=== PATIENT | female | born 1990 | race Caucasian/White ===

== ENCOUNTER 2023-03-30 17:00 | Emergency (ER) | payer OTHER, SELFPAY ==
[2023-03-30 17:16] VITALS: BP 116/69; PULSE 98; RESP 16; TEMP 36.5; O2SAT 100
--- NOTE | 2023-03-30 17:35 | ED.URI ---
HPI - URI/Sore Throat General Chief Complaint: Upper Respiratory Infection Stated Complaint: Body Ache/Cough History of Present Illness HPI Narrative: 32-year-old female presented for complaint of fatigue and body aches. Onset yesterday. denies any associated symptoms. No other complaints. Related Data Home Medications Medication Instructions Recorded Confirmed metformin 500 mg tablet,extended mg PO 03/30/23 release 24 hr sertraline 100 mg tablet mg 03/30/23 Allergies Allergy/AdvReac Type Severity Reaction Status Date / Time cefaclor [From [facility]] Allergy Unknown Verified 03/30/23 17:16 Review of Systems Review of Systems: CONSTITUTIONAL: Reports body aches, denies fever, chills, or sweats. EYES: Denies visual changes, redness, or discharge. ENT: Denies rhinorrhea, congestion, or otalgia. CARDIOVASCULAR: Denies chest pain, palpitations, or edema. RESPIRATORY: Denies dyspnea. GASTROINTESTINAL: Denies abdominal pain, nausea, vomiting, or diarrhea. SKIN: Denies rash, itching, or wounds. MUSCULOSKELETAL: Denies back pain, joint pain, or myalgia. NEUROLOGIC: Denies headache Exam Narrative: GENERAL: well-appearing, no acute distress. EYES: conjunctivae clear ENT: Mucous membranes moist. TMs pearly pickett with normal light reflex bilaterally; no tragal tenderness. Oropharynx normal without lesions. Tonsils enlarged 1+ and without exudate. No drooling, no hoarseness, no trismus, uvula midline. No tripod positioning, hot potato voice, or soft palate swelling. NECK: Supple. No lymphadenopathy CHEST: Clear to auscultation, breath sounds equal. No respiratory distress, speaks in full sentences. HEART: Regular rate and rhythm. No murmur heard. SKIN: Warm, dry, no rash. NEURO: Alert and oriented x3. Course Course Emergency Course: Patient is aware of diagnosis, understands and agrees to treatment plan. Anticipatory guidance given. Patient agrees to follow-up as directed and is aware of reasons to seek care at the emergency department. Portions of this record may have been created with voice recognition software Level of Care: Express Care Visit Vital Signs Vital signs: Vital Signs Temperature 97.7 F 03/30/23 17:16 Pulse Rate 98 03/30/23 17:16 Respiratory Rate 16 03/30/23 17:16 Blood Pressure 116/69 03/30/23 17:16 Pulse Oximetry 100 03/30/23 17:16 Oxygen Delivery Room Air 03/30/23 17:16 Temperature 97.7 F 03/30/23 17:16 Pulse Rate 98 03/30/23 17:16 Respiratory Rate 16 03/30/23 17:16 Blood Pressure 116/69 03/30/23 17:16 Pulse Oximetry 100 03/30/23 17:16 Oxygen Delivery Room Air 03/30/23 17:16 MDM - URI/Sore Throat MDM Narrative Medical decision making narrative: negative flu and COVID result reviewed with pt. Advise supportive treatments. Patient is appropriate for outpatient treatment and follow-up. Differential Diagnosis Differential diagnosis: Likely upper respiratory infection, viral infection and pharyngitis Lab Data Labs: Influenza A Screen Negative Reference Range: Negative Influenza B Screen Negative Reference Range: Negative Discharge Plan Discharge Clinical Impression: Viral infection Patient Disposition: Home, Self-Care Condition: Stable Instructions: Antibiotic Form, Upper Respiratory Infection (ED) Additional Instructions: Influenza negative. Neck Your rapid covid test was negative today. It may be too early to detect the virus, therefore we recommend retesting at home in 1-2 days Continue to follow general precautions: frequent handwashing, wear a mask, isolate/social distance, and avoid crowds if you have a fever. You must be fever free for 24 hours without the use of fever reducing medication (Tylenol/ibuprofen) before returning to work/school/crowds. Recommen
== END 2023-03-30 17:47 | disposition home or self-care (01) ==
PROVIDERS: Emergency Provider Nurse Practitioner Family
DX: B34.9 Viral infection, unspecified (principal); Z20.822 Contact with and (suspected) exposure to COVID-19
CPT/HCPCS: 87426; 87804; 99213; G0463

== ENCOUNTER 2023-11-16 12:43 | Emergency (ER) | payer OTHER, SELFPAY ==
--- NOTE | ~2023-11-16 | XR_ITS ---
EXAMINATION: XR foot RT min 3V DATE: 11/16/2023 13:29 INDICATION: Right foot pain. TECHNIQUE: 4 views of right foot were obtained. COMPARISON: None. FINDINGS: There is mild hallux valgus. No fracture. Joint spaces are normal. There are enthesophytes at the posterior and plantar aspects of calcaneal tuberosity. IMPRESSION: 1. Mild hallux valgus. Reviewed, dictated and finalized at location A. IMPRESSION: 1. Mild hallux valgus.
--- NOTE | 2023-11-16 12:48 | ED.LOWEXIN ---
HPI - Extremity Injury (Lower) General Chief Complaint: Extremity Injury, Lower Stated Complaint: Right Foot Pain Time Seen by Provider: 11/16/23 12:48 Source: patient Mode of arrival: ambulatory Limitations: no limitations History of Present Illness HPI Narrative: 33-year-old female presents with complaint of pain to top of right foot for 3-4 days. Denies injury. Patient arrived wearing flip-flops. has taken Tylenol to treat pain. Pain worse when weight-bearing. All systems reviewed and negative except as noted above. Related Data Home Medications Medication Instructions Recorded Confirmed metformin 500 mg tablet,extended 500 mg PO DAILY 03/30/23 11/16/23 release 24 hr sertraline 100 mg tablet 100 mg PO DAILY 03/30/23 11/16/23 Allergies Allergy/AdvReac Type Severity Reaction Status Date / Time cefaclor [From [facility]] Allergy Unknown Verified 11/16/23 12:58 Review of Systems Review of Systems: CONSTITUTIONAL: Denies fever, chills, or sweats. EYES: Denies visual changes, redness, or discharge. ENT: Denies rhinorrhea, congestion, sore throat, or otalgia. CARDIOVASCULAR: Denies chest pain, palpitations, or edema. RESPIRATORY: Denies cough or dyspnea. GASTROINTESTINAL: Denies abdominal pain, nausea, vomiting, or diarrhea. GENITOURINARY: Denies dysuria or hematuria. SKIN: Denies rash or itching. MUSCULOSKELETAL: Denies back pain, joint pain, or myalgia. Reports pain to top of right foot. NEUROLOGIC: Denies headache, numbness, or weakness. PSYCHIATRIC: Denies anxiety or depression. All other systems reviewed are negative, except as documented in HPI. PMFSH Comments At time of signature, agree with nursing past medical, surgical, social and family history. There is no relevant family history pertinent to the presenting complaint. Exam Narrative: GENERAL: This is a well-nourished, well-developed patient, in no apparent distress. HEAD: normocephalic, atraumatic. EYES: PERRL. Sclera clear/white. Vision is grossly intact. EARS: External ears normal NOSE: External nose normal NECK: Neck supple, non-tender without lymphadenopathy, masses or thyromegaly. CARDIOVASCULAR: Regular rate and rhythm without murmurs, gallops, or rubs. RESPIRATORY: Clear to auscultation. Breath sounds equal bilaterally. No wheezes, rales, or rhonchi. SKIN: warm, Dry, intact with no suspicious lesions or rash, good texture and turgor. NEURO: awake, alert, and oriented to person, place and time. There were no obvious focal neurologic abnormalities. EXTREMITIES: Generalized tenderness to dorsal aspect right foot with mild swelling. No bruising or deformity noted. Normal range of motion. Distal neurovascularly intact. Course Course Level of Care: Express Care Visit Vital Signs Vital signs: Reviewed MDM - Extremity Injury (Lower) MDM Narrative Medical decision making narrative: discussed x-ray results with patient. There are no findings to cause her pain. Recommend follow-up with primary care physician if pain not improving with RICE Patient is aware of diagnosis, understands and agrees to treatment plan. Anticipatory guidance given. Patient agrees to follow-up as directed and is aware of reasons to seek care at the emergency department. Portions of this record may have been created with voice recognition software Imaging Data My impression: agree with radiologist Radiologist's impression: EXAMINATION: XR foot RT min 3V DATE: 11/16/2023 13:29 INDICATION: Right foot pain. TECHNIQUE: 4 views of right foot were obtained. COMPARISON: None. FINDINGS: There is mild hallux valgus. No fracture. Joint spaces are normal. There are enthesophytes at the posterior and plantar aspects of calcaneal tuberosity. IMPRESSION: 1. Mild hallux valgus. Discharge Plan Discharge Clinical Impression: Acute pain of right foot Patient Disposition: Home, Self-Care Condition: Stable Instructions: Gener
[2023-11-16 12:50] VITALS: BP 137/79; PULSE 80; RESP 16; TEMP 36.6; O2SAT 100
== END 2023-11-16 13:56 | disposition home or self-care (01) ==
PROVIDERS: Emergency Provider Nurse Practitioner Family
DX: M79.671 Pain in right foot (principal); E28.2 Polycystic ovarian syndrome; F41.9 Anxiety disorder, unspecified
CPT/HCPCS: 73630; 99213; G0463

== ENCOUNTER 2023-12-03 16:56 | Emergency (ER) | payer OTHER, SELFPAY ==
[2023-12-03 17:27] VITALS: BP 141/70; PULSE 102; RESP 20; TEMP 36.6; O2SAT 100
[2023-12-03 17:35] LABS: EDUAAPPEAR Clear; EDUABILI Negative (Negative); EDUABLOOD Trace (Negative); EDUACOLOR1 Amber; EDUAGLUCOSE Negative (Negative); EDUAKETONE Negative (Negative); EDUALEUKO 1+ (Negative); EDUANITRATE Negative (Negative); EDUAPROTEIN Negative (Negative); EDUAUROBILI 0.2
--- NOTE | 2023-12-03 20:12 | ED_ITS ---
HPI - General Adult General Chief complaint: Urogenital-Female Stated complaint: poss UtI Time Seen by Provider: 12/03/23 17:32 Source: patient, RN notes reviewed and old records reviewed Mode of arrival: ambulatory Limitations: no limitations History of Present Illness HPI narrative: 33-year-old female to Express Care with complaint urinary urgency, frequency and lower abdominal pressure since this morning. Patient denies flank pain, abdominal pain, nausea, fever, hematuria. Patient hypertensive and tachycardic in triage. Patient resting uncomfortably in exam room. Respirations even and nonlabored. Patient in no acute distress. Related Data Home Medications Medication Instructions Recorded Confirmed metformin 500 mg tablet,extended 500 mg PO DAILY 03/30/23 11/16/23 release 24 hr sertraline 100 mg tablet 100 mg PO DAILY 03/30/23 11/16/23 Allergies Allergy/AdvReac Type Severity Reaction Status Date / Time [facility] [[facility] Allergy Unknown Verified 11/16/23 12:58 Review of Systems Review of Systems: All systems reviewed & are unremarkable except as noted in HPI and below Constitutional: Constitutional: Reports no additional constitutional complaints Eyes: Eyes: Reports no additional eye complaints ENT: Reports system reviewed and no additional complaints, except as documented Cardiovascular: Cardiovascular: Reports no additional cardiovascular complaints, Denies chest pain and Denies dyspnea Respiratory: Respiratory: Reports no additional respiratory complaints, Denies cough and Denies dyspnea Genitourinary: Genitourinary: Reports as per HPI, Reports nocturia, Denies flank pain, Reports urinary urgency and Reports other ( Bladder tenderness.) Musculoskeletal: Musculoskeletal: Reports no additional musculoskeletal complaints Neurologic: Reports system reviewed and no additional complaints, except as documented Psychiatric: Psychiatric: Reports no additional psychiatric complaints PMFSH Comments At the time of my signature, I reviewed and agree with the nursing past medical, surgical, social, and family history. There is no relevant family history pertinent to the patient complaint. Exam Const: General: cooperative, no acute distress, well developed, alert, uncomfortable, well groomed and well nourished Nutritional Appearance: well nourished Orientation/consciousness: patient oriented x3 Limitations: no limitations HENMT: Head: normal to inspection Ears: external ears normal Face/Nose/Sinus: Normal external nose present, Normal nares present, normal facial exam, No erythema and No edema Face and sinus: normal facial exam, no erythema and no edema Mouth: Yes Normal oral and palatal mucosa present Eyes: General: appearance normal, both eyes and all related structures Neck: Neck: normal visual inspection, full ROM and no meningeal signs Chest: Chest palpation & inspection: normal inspection of the chest Resp: Effort & Inspection: normal respiratory effort and able to speak in complete sentences Auscultation: clear to auscultation bilaterally Cardio: Jugular venous distension: no JVD Rate: regular rate Rhythm: regular rhythm : General: Yes no CVA tenderness Back/Spine/Pelvis: Cervical Spine: cervical ROM normal Skin: General skin exam: normal color, no rashes or lesions noted and turgor normal Neuro: General: patient oriented x3, gait normal, moves all extremities and no meningeal signs Speech: normal speech Gait exam (Neuro): Normal gait present Extrem: General: normal to inspection, full ROM and capillary refill normal Psych: Appearance: grossly normal and well kempt Course Course Emergency Course: Some parts of this dictation were generated by voice recognition software and may contain typographical and/or grammatical inaccuracies. Level of Care: Express Care Visit Vital Signs Vital signs: Vital Signs Temperature 36.6 C 12/03/23 17:27 Pulse Rate 102 H 12/03/23 17:27 Respiratory Rate 20 12/03/23 17:27 Blood Pressure 141/70 H 12/03/23 17:27 Pulse Oximetry 100 12/03/23 17:27 Temperature 36.6 C 12/03/23 17:27 Pulse Rate 102 H 12/03/23 17:27 Respiratory Rate 20 12/03/23 17:27 Blood Pressure 141/70 H 12/03/23 17:27 Pulse Oximetry 100 12/03/23 17:27 reviewed Medical Decision Making MDM Narrative Medical decision making narrative: 33-year-old female to Express Care with complaint urinary urgency, frequency and lower abdominal pressure since this morning. Patient denies flank pain, abdominal pain, nausea, fever, hematuria. Patient hypertensive and tachycardic in triage. Patient resting uncomfortably in exam room. Respirations even and nonlabored. Patient in no acute distress. Patient is sitting uncomfortably in exam room nontoxic in appearance. on exam, bladder tenderness present. Exam otherwise unremarkable. UA positive for UTI in clinic. Culture sent. Patient appropriate for outpatient treatment and follow-up. Discharge instructions reviewed with patient, as well as provided in writing per nursing staff. The instructions also include specific and strict return/GO TO THE ER as well as f/u information. All questions have been answered, and the patient deny any further questions with discharge and discharge plan. Some parts of this dictation were generated by voice recognition software and may contain typographical and/or grammatical inaccuracies. Differential Diagnosis Differential Diagnosis: Urinary tract infection, acute cystitis, sexually transmitted infection Vital Signs Vital Signs: Vital Signs Temperature 36.6 C 12/03/23 17:27 Pulse Rate 102 H 12/03/23 17:27 Respiratory Rate 20 12/03/23 17:27 Blood Pressure 141/70 H 12/03/23 17:27 Pulse Oximetry 100 12/03/23 17:27 Temperature 36.6 C 12/03/23 17:27 Pulse Rate 102 H 12/03/23 17:27 Respiratory Rate 20 12/03/23 17:27 Blood Pressure 141/70 H 12/03/23 17:27 Pulse Oximetry 100 12/03/23 17:27 Lab Data Labs: Lab Results 12/03/23 Range/Units 17:32 POC Urine Color Mira POC Urine Clarity Clear POC Urine pH 7.0 POC Ur Specif Vesta 1.020 POC Urine Protein Negative (Negative) POC Ur Glucose (UA) Negative (Negative) POC Urine Ketones Negative (Negative) POC Urine Blood Trace (Negative) POC Urine Nitrite Negative (Negative) POC Urine Bilirubin Negative (Negative) POC Urine Urobilinogen 0.2 POC U Leukocyte Esteras 1+ (Negative) Discharge Plan Discharge Clinical Impression: Urinary tract infection Patient Disposition: Home, Self-Care Condition: Stable Instructions: Urinary Tract Infection in Women (DC) Additional Instructions: We will send a urine culture off to the lab; if the culture identifies an organism that the prescribed antibiotic will not treat, you will receive a phone call from an urgent care staff member and an appropriate antibiotic will be prescribed. -Your symptoms should begin to improve within a day of starting antibiotics. But you should finish all the antibiotic pills you get. Otherwise your infection might come back. -Also recommend: drink more fluid. It might help flush out germs, and it does no harm -Tylenol/ibuprofen as needed for pain -Follow-up with your primary care provider for urine recheck OR if your symptoms persist, change or worsen significantly before you can contact your personal physician then please, without delay, go to the emergency department for further evaluation. Prescriptions: New sulfamethoxazole-trimethoprim [Bactrim DS] 800-160 mg tablet 1 tablet PO Q12H Qty: 14 0RF No Action sertraline 100 mg tablet 100 mg PO DAILY metformin 500 mg tablet extended release 24 hr 500 mg PO DAILY Follow-up/Referrals: PHYSICIAN,WHEEL AND PINION INSPECTOR [Primary Care Provider] -
== END 2023-12-03 17:49 | disposition home or self-care (01) ==
PROVIDERS: Emergency Provider Nurse Practitioner Family
DX: N39.0 Urinary tract infection, site not specified (principal); B96.20 Unspecified Escherichia coli [E. coli] as the cause of diseases classified elsewhere; E28.2 Polycystic ovarian syndrome; F41.9 Anxiety disorder, unspecified
CPT/HCPCS: 81003; 87086; 87186; 99213; G0463

== ENCOUNTER 2024-05-24 18:39 | Emergency (ER) | payer OTHER, SELFPAY ==
--- OUTSIDE RECORDS SUMMARY | 2024-05-24 18:41 | XMS_ITS | Continuity of Care Document ---
Author Organization [facility] Address [address] [place] [address] Phone Care Team Providers Care Mixer Attendant Name Role Phone Unavailable Unavailable Unavailable Advance Directives Directive Yes / No Effective Date File Name No Information Encounters Encounter Description Practice Location Reason(s) For Visit Diagnoses Date Provider Providers Copied on Encounter [facility], [address] [facility], [place], [place], [id number], [place] tel:[phone] [facility] OUTPATIENT No Information Mar-0 5-201 2 No Information Referring Provider: REFERRAL SELF. Family History Family Member Type Diagnosis Age At Onset No Information Payers Payer name Insurance type Covered libertarian ID Authorangelya hollie(s) LENNIE O [id number] Social History Type Description Quantity Date Captured Comments Sex Female Smoking Status No Information Chief Complaint And Reason For Visit No Information History Of Present Illness Encounter Date Complaint History Of Prese nt Illness No Information Instructions Date Instruction Additional Infor mation No Information Assessments Type Assessment Date No Information
--- OUTSIDE RECORDS SUMMARY | 2024-05-24 18:41 | XMS_ITS | Referral Summary ---
Author Organization [address] lt Address [address] [place] [address] Care Team Providers Care Arc Air Operator Name Role Phone No, Physician Primary Care Provider [phone] Encounters Date Type Department Care Team Description 03/06/2024 10:45 AM REMEDIATION TECHNICIAN Office Visit [facility] [place] [address] [place] [address] Taylor Rutherford NP Irritant dermatitis (Primary Dx) from Last 3 Months Allergies Active Allergy Reactions Criticality Noted Date Comments Cefaclor Hives Medium 11/08/2010 Medications clomiPHENE (CLOMID) 50 mg tablet 1 Active sertraline (ZOLOFT) 100 mg tablet Take 2 tablets (200 mg total) by mouth daily 1 Active albuterol HFA (ProAir HFA) 90 mcg/actuation inhalerIndication s:Acute bronchitis, unspecified organism Inhale 2 puffs every 4 (four) hours as needed for wheezing or shortness of breath 8.5 g 1 Active metFORMIN XR (GLUCOPHAGE XR) 500 mg 24 hr tablet Take 1 tablet (500 mg total) by mouth daily 2 Active mv-min/iron/folic /calcium/vitK (WOMEN'S MULTIVITAMIN ORAL) Take by mouth Active norethindrone-e.e stradioL-iron (Lo Loestrin Fe) 1 mg-10 mcg (24)/10 mcg (2) tablet per tabletIndications :Irritant dermatitis Take 1 tablet by mouth daily 4 Active triamcinolone (KENALOG) 0.1 % creamIndications: Irritant dermatitis Apply topically 2 (two) times a day 30 g 5 Active Active Problems No known active problems Social History Tobacco Use Types Packs/Day Years Used Date Smoking Tobacco: Never Smokeless Tobacco: Never Comments No Sex and Gender Information Value Date Recorded Sex Assigned at Not on file Legal Sex Female 2:37 AM REMEDIATION TECHNICIAN Gender Identity Not on file Sexual Orientation Not on file Last Filed Vital Signs Vital Sign Reading Time Taken Comments Blood Pressure 122/80 03/06/2024 10:40 AM REMEDIATION TECHNICIAN Pulse 84 03/06/2024 10:40 AM REMEDIATION TECHNICIAN Temperature 36.5 C (97.7 F) 03/06/2024 10:40 AM REMEDIATION TECHNICIAN Respiratory Rate 16 03/06/2024 10:40 AM REMEDIATION TECHNICIAN Oxygen Saturation 99% 03/06/2024 10:40 AM REMEDIATION TECHNICIAN Inhaled Oxygen Concentration - - Weight 100.7 kg (222 lb) 03/06/2024 10:40 AM REMEDIATION TECHNICIAN Height 165.1 cm (5' 5 ) 03/06/2024 10:40 AM REMEDIATION TECHNICIAN Body Mass Index 36.94 03/06/2024 10:40 AM REMEDIATION TECHNICIAN Plan of Treatment Not on file Insurance [facility] CHO[facility] PLUS Care Teams Arc Air Operator Relationship Specialty Start Date End Date No, Physician PCP - General 04/25/20
--- OUTSIDE RECORDS SUMMARY | 2024-05-24 18:41 | XMS_ITS | Clinical Summary ---
Author Organization [address] Address [address] [place] [address] Care Team Providers Care Branding Machine Tender Name Role Phone No, Physician Primary Care Provider [phone] Allergies Active Allergy Reactions Criticality Noted Date [...] Active Active Problems No known active problems Encounters Date Type Department Care Team Description 03/06/2024 10:45 AM DOG OBEDIENCE INSTRUCTOR Office Visit [facility] [place] [address] [place] [address] Taylor Rutherford NP Irritant dermatitis (Primary Dx) from Last 3 Months Surgical History Surgery Date Site/Laterality Comments OTHER SURGICAL HISTORY C section 04/30/11 SECTION Medical History Medical History Date Comments PCOS (polycystic ovarian syndrome) depression Family History Medical History Relation Name Comments Lung cancer Mother's Brother Relation Name Status Comments Mother's Brother Social History Tobacco Use Types Packs/Day Years Used Date Smoking Tobacco: Never Smokeless Tobacco: Never Comments No Sex and Gender Information Value Date Recorded Sex Assigned at Not on file Legal Sex Female 2:37 AM DOG OBEDIENCE INSTRUCTOR Gender Identity Not on file Sexual Orientation Not on file Obstetrics History Last Filed Vital Signs Vital Sign Reading Time Taken Comments Blood Pressure 122/80 03/06/2024 10:40 AM DOG OBEDIENCE INSTRUCTOR Pulse 84 03/06/2024 10:40 AM DOG OBEDIENCE INSTRUCTOR Temperature 36.5 C (97.7 F) 03/06/2024 10:40 AM DOG OBEDIENCE INSTRUCTOR Respiratory Rate 16 03/06/2024 10:40 AM DOG OBEDIENCE INSTRUCTOR Oxygen Saturation 99% 03/06/2024 10:40 AM DOG OBEDIENCE INSTRUCTOR Inhaled Oxygen Concentration - - Weight 100.7 kg (222 lb) 03/06/2024 10:40 AM DOG OBEDIENCE INSTRUCTOR Height 165.1 cm (5' 5 ) 03/06/2024 10:40 AM DOG OBEDIENCE INSTRUCTOR Body Mass Index 36.94 03/06/2024 10:40 AM DOG OBEDIENCE INSTRUCTOR Plan of Treatment Health Maintenance Due Date Last Done Comments Cervical Cancer Screening 1992 Depression Screening 1992 Hepatitis C Screening 1992 Varicella Vaccines (1 of 2 - 13+ 2-dose series) 2005 Hepatitis B Screening 2010 Regular Well Visit/Exam 18-64 2010 Influenza Vaccine (#1) 2023 4, 12/11/2013, 03/02/2013, Additional history exists DTaP/Tdap/Td Vaccine (4 - Td or Tdap) 03/29/2031 03/29/2021, 07/18/2014, 05/04/2011 HPV Vaccines Aged Out No longer eligi ble based on patient's age to complete this topic Pneumococcal vaccine <65 Aged Out No longer eligible based on patient's age to complete this topic Insurance [facility]O Address: [place] [address] [facility] [employer] Address: [place] [address] Care Teams Branding Machine Tender Relationship Specialty Start Date End Date No, Physician PCP - General 04/25/20
--- OUTSIDE RECORDS SUMMARY | 2024-05-24 18:41 | XMS_ITS | Clinical Summary ---
Author Organization [facility] Address [address] [place] [address] Phone Care Team Providers Care Personal Banker Name Role Phone Unavailable Primary Care Provider Unavailabl e Allergies Active Allergy Reactions Criticality Noted Date Comments Muriellor Amy Hives High 11/08/2010 Medications vit-iron fumarate-fa (MARIO ) 28-0.8 mg Tablet Take 1 Tab by mouth daily. Active norethindrone- e.estradioL-ir on (Lo Loestrin Fe) 1 mg-10 mcg (24)/10 mcg (2) Tablet per tablet Take 1 Tablet by mouth daily. 84 Tablet 3 03/31/19 24 Active sertraline (ZOLOFT) 100 mg tablet TAKE 2 TABLETS(200 MG) BY MOUTH DAILY 180 Tablet 05/06/19 25 Active metFORMIN (GLUCOPHAGE XR) 500 mg Extended Release 24 hour tablet TAKE 1 TABLET(500 MG) BY MOUTH DAILY WITH BREAKFAST 90 Tablet 05/06/19 25 Active metFORMIN (GLUCOPHAGE XR) 500 mg Extended Release 24 hour tablet TAKE 1 TABLET(500 MG) BY MOUTH DAILY WITH BREAKFAST 30 Tablet 8 07/29/19 24 025 Discontinued sertraline (ZOLOFT) 100 mg tablet TAKE 2 TABLETS(200 MG) BY MOUTH DAILY 180 Tablet 02/01/20 24 025 Discontinued Active Problems Problem Noted Date Diagnosed Date Hidradenitis suppurativa 03/31/2023 Anxiety state 06/12/2021 History of 3 sections 05/24/2021 COVID-19 virus detected 03/04/2021 History of pre-eclampsia 11/21/2020 Resolved Problems Problem Noted Date Diagnosed Date Resolved Date History of 2 sections 11/21/2020 07/16/2021 resulting from in vitro fertilization in first trimester 11/21/2020 022 rLTCS 08/01, GHTN, plt: 142->116, hb.7 08/01/2014 03/04/2021 Implanon insertion 05/14/11 09/22/2011 JFK, C/S 04/29, gest thromboc ytopenia, Tom male - circ done 04/30/2011 08/04/2014 Contraception - wants implanon PP 04/30/2011 05/20/2011 Fundal height low for dates Growth pending 04/10/2011 04/15/2011 Gestational thrombocytopenia ; platelets 129 on 03/18, 135 on 03/2803/28/2011 05/20/2011 Breech C/S 04/2903/28/2011 08/04/2014 Teen 03/25/2011 05/20/2011 AB negative, s/p rhogam 03/25/201105/10 JFK, subchorionic hemorrhage - stable 12/03/2010 03/18/2011 Anemia, Hgb 9.8 on PNL 11/21/201008/04 JFK, breech, gest thrombocytopenia 11/08/2010 08/04/2014 Vaginal discharge during pre gnancy in third trimester 04/01/2021 Intact amniotic membranes du ring in third trimester 04/01/2021 Encounters Date Type Department Care Team Description 05/05/2024 [facility] [address] [facility] [place] [id number] Mine Lockwood DNP 05/04/2024 [facility] [place] Clinical Support [address] [place] [address] Mine Meléndez, DAVID 03/29/2024 External Device Data [facility] ABSTRACTION Provider, Abstract 03/01/2024 External Device Data [facility] ABSTRACTION Provider, Abstract from Last 3 Months Immunizations Immunization Administration Dates Next Due (ADACEL/BOOSTRIX)(10 YR UP) TDAP VACCINE, 0.5ML, IM 03/29/2021,07/18/2014,05/04/2011 Influenza Seasonal Unspecifi ed Formulation IM 01/01/2014 Influenza Vaccine Split 3+ Yrs PF IM 12/17/2010 Rho (D) IMMUNE GLOBULIN 1,50 0 UNIT(300 MCG) INJECTION 08/02/2014,02/28/2011 Rhogam (Rhig) Human Full Dose IM 11/08/2010 Family History Medical History Relation Name Comments Healthy Brother 1 Healthy Brother 2 Healthy Daughter 1 Healthy Daughter 2 Diabetes Maternal Grandfather Healthy Maternal Grandmother Healthy Mother Healthy Paternal Grandfather Healthy Paternal Grandmother Healthy Sister 1 Healthy Sister 2 Healthy Son Relation Name Status Comments Brother 1 Alive Brother 2 Alive Daughter 1 Alive Daughter 2 Alive Father Maternal Grandfather Maternal Grandmother Alive Mother Alive Paternal Grandfather Alive Paternal Grandmother Alive Sister 1 Alive Sister 2 Alive Son Alive Social History Tobacco Use Types Packs/Day Years Used Date Smoking Tobacco: Never Smokeless Tobacco: Never Alcohol Use Standard Drinks/Week Comments Not Currently 0 (1 standard drink = 0.6 oz pur e alcohol) Comments No Sex and Gender Information Value Date Recorded Sex Assigned at Not on file Legal Sex Female 6:04 AM ASSOCIATE CURATOR Gender Identity Not on file Sexual Orientation Not on file Occupation Industry Job Start Date Job End Date Not on file Not on file Not on file Not on file Last Filed Vital Signs Vital Sign Reading Time Taken Comments Blood Pressure 124/80 03/31/2023 10:02 AM ASSOCIATE CURATOR Pulse 86 08/07/2021 10:35 AM CDT Temperature 36.8 C (98.3 F) 05/28/2021 7:24 AM CDT Respiratory Rate 18 05/28/2021 7:24 AM CDT Oxygen Saturation 97% 08/07/2021 10:35 AM CDT Inhaled Oxygen Concentration - - Weight 100.2 kg (221 lb) 03/31/2023 10:02 AM ASSOCIATE CURATOR Height 165.1 cm (5' 5 ) 03/31/2023 10:02 AM ASSOCIATE CURATOR Body Mass Index 36.78 03/31/2023 10:02 AM ASSOCIATE CURATOR Plan of Treatment Health Maintenance Due Date Last Done Comments HEPATITIS B VACCINES (1 of 3 - 19+ 3-dose series) 05/22/2011 INFLUENZA VACCINE (#1) 2023 4, 12/17/2010 PAP SMEAR 03/31/2026 03/31/2023, 12/04/2021 CERVICAL CANCER SCREENING 03/31/2028 HPV/Cotest (21-29) 03/31/2028 03/31/2023 HPV/Cotest (30-65) 03/31/2028 03/31/2023 DTAP/TDAP/TD VACCINES (4 - Td or Tdap) 03/29/2031 03/29/2021, 07/18/2014, 05/04/2011 HPV VACCINES Aged Out No longer eligi ble based on patient's age to complete this topic Procedures Procedure Name Priority Date/Time Associated Diagnosis Comments CERV/VAG CYTO AGE BASED SCREEN PAP Routine 03/31/2023 12:50 PM ASSOCIATE CURATOR Well woman exam with routine gynecological exam Screening for HPV (human papillomavirus) Cervical cancer screening from Last 3 Months or Most Recently Relevant to Health Maintenance Results * CERV/VAG CYTO AGE BASED SCREEN PAP (03/31/2023 12:50 PM ASSOCIATE CURATOR) COMMENT (PAP): [facility] [place] Comment: This order for age-based cervical cancer and STI screening follows ACOG guidelines(PB 168, 140, ZDF564). See individual assays for performing site location. CLINICAL INFORMATION [facility] [place] Comment:Routine exam LAST MENSTRUAL PERIOD [facility] [place] Comment:NONE GIVEN PREV PAP: [facility] [place] Comment:NONE GIVEN PREV BX: [facility] [place] Comment:NONE GIVEN SOURCE [facility] [place] Comment:Endocervix ADEQUACY: [facility] [place] Comment: Satisfactory for evaluation. Endocervical/transformation zone component present. Age and/or menstrual status not provided PAP INTERP [facility] [place] Comment: Cytology Results: Negative for intraepithelial lesion or malignancy. COMMENT (PAP TEST) [facility] [place] Comment: This Pap test has been evaluated with computer assisted technology. MIDDLE SCHOOL READING TEACHER: Giulia Gunn- [place] Comment: YQ, CT(ASCP) CT screening location: [place] [address] [place] [address] EXPLANATORY NOTE [facility] [employer] [place] Comment: EXPLANATORY NOTE: The Pap is a screening test for cervical cancer. It is not a diagnostic test and is subject to false negative and false positive results. It is most reliable when a satisfactory sample, regularly obtained, is submitted with relevant clinical findings and history, and when the Pap result is evaluated along with historic and current clinical information. HPV E6/E7 Not Detected Not Detected [facility] [place] Comment: Methodology: Skidder Lever Operator-Mediated Amplification This assay detects E6/E7 viral messenger RNA (mRNA) from 14 high-risk HPV types (16,18,31,33,35,39,45,51,52,56,58,59,66,68). Cervical sources are required for HPV testing. If a vaginal source from a patient who has had a total hysterectomy with removal of cervix was submitted, please contact the testing laboratory for alternative testing options. For additional information, please refer to http://education.Prepair/faq/NNL770n6 (This link if provided for information/ educational purposes only.) [facility] [address] [id number] Luciana MACIEL Genital SWAB OF ENDOCERVIX / Unknown 03/31/2023 12:50 PM ASSOCIATE CURATOR 04/01/2023 12:21 AM ASSOCIATE CURATOR us Kavita Murray MD PATHOLOGY/CYTOLOGY ORD ERABLES Final Result [facility] [phone] [facility] [address] [place] [address] from Last 3 Months or Most Recently Relevant to Health Maintenance Insurance RX [employer] RX Member Subscriber Plan / Payer (Ef fective 2020-Present) Name:Ashley Rodriguez Relation to Subscriber:Self Name:Ashley Rodriguez Subscriber ID:Not on file Payer ID:Not on file Group ID:[id number] Type:RX Commercial Address: [address] [place] [employer] (INTERNAL) [facility] Internal Plans Advance Directives For more information, please contact: [phone] * Full Code (Latest Code Status on File) Date Activated Date Inactivated Comments 05/24/2021 3:59 PM 05/28/2021 12:38 PM * Full Code Date Activated Date Inactivated Comments 03/20/2021 11:51 PM 03/21/2021 5:29 AM * Full Code Date Activated Date Inactivated Comments 01/07/2021 1:21 AM 01/07/2021 6:43 AM * Full Code Date Activated Date Inactivated Comments 08/02/2014 12:35 AM 08/05/2014 12:24 PM * Full Code Date Activated Date Inactivated Comments 08/01/2014 5:11 PM 08/02/2014 12:35 AM
--- OUTSIDE RECORDS SUMMARY | 2024-05-24 18:42 | XMS_ITS | Continuity of Care Document ---
Author Organization [facility] Address [address] [place] [address] Phone Care Team Providers Care Cap Inspector Name Role Phone Unavailable Unavailable Unavailable Advance Directives Directive Yes / No Effective Date File Name No Information Encounters Encounter Description Practice Location Reason(s) For Visit Diagnoses Date Provider Providers Copied on Encounter [facility], [address] [facility], [place], [place], [id number], [place] tel:[phone] [facility] OUT[facility]IENT No Information Mar-0 5-201 2 No Information Referring Provider: REFERRAL SELF. Family History Family Member Type Diagnosis Age At Onset No Information Payers Payer name Insurance type Covered constitution party ID Authorangelya hollie(s) LENNIE O [id number] Social History Type Description Quantity Date Captured Comments Sex Female Smoking Status No Information Chief Complaint And Reason For Visit No Information History Of Present Illness Encounter Date Complaint History Of Prese nt Illness No Information Instructions Date Instruction Additional Infor mation No Information Assessments Type Assessment Date No Information
[2024-05-24 18:44] VITALS: BP 139/80; PULSE 81; RESP 20; TEMP 37.1; O2SAT 98
[2024-05-24 19:13] LABS: EDUAAPPEAR Clear; EDUABILI Negative (Negative); EDUABLOOD Negative (Negative); EDUACOLOR1 Yellow; EDUAGLUCOSE Negative (Negative); EDUAKETONE Negative (Negative); EDUALEUKO Negative (Negative); EDUANITRATE Negative (Negative); EDUAPH 5.5; EDUAPROTEIN Negative (Negative); EDUASPGRAVITY 1.025; EDUAUROBILI 0.2
--- NOTE | 2024-05-24 19:53 | ED_ITS ---
HPI - Female Genitourinary General Chief complaint: Urogenital-Female Stated complaint: poss bladder infection Time Seen by Provider: 05/24/24 19:35 Source: patient, RN notes reviewed and old records reviewed Mode of arrival: ambulatory Limitations: no limitations History of Present Illness HPI Narrative: 34 year old female presents to [facility] care with complaints of urinary frequency and pelvic pressure starting last night. Patient reports that she has had previous UTI's with last one about 6 months ago. Patient reports no CVA tenderness or any burning with urination. Patient reports no fevers, chills or back pain, denies any nausea or vomiting or ay concern for STD exposure MD elicited complaint: UTI Pertinent past history: other (past UTI, PCOS) Onset (ago): day(s) (started lat night) Severity: mild Quality of pain: other (pressure pelvic) Vaginal discharge: none Vaginal bleeding: none Treatment prior to arrival: none Related Data Home Medications ?Medication ?Instructions ?Recorded ?Confirmed ?Last Taken ?Type metformin 500 mg tablet,extended 500 mg PO DAILY 03/30/23 11/16/23 Unknown History release 24 hr sertraline 100 mg tablet 100 mg PO DAILY 03/30/23 11/16/23 Unknown History Allergies Allergy/AdvReac Type Severity Reaction Status Date / [facility] Allergy Unknown Verified 05/24/24 18:49 Review of Systems Review of Systems: CONSTITUTIONAL: Denies fever, chills, or sweats. CARDIOVASCULAR: Denies chest pain, palpitations, or edema. RESPIRATORY: Denies cough or dyspnea. GASTROINTESTINAL: Reports pelvic pressure,no nausea, vomiting, or diarrhea. GENITOURINARY: Reports no dysuria,states frequency, urgency. Denies flank pain or hematuria. SKIN: Denies rash or itching. MUSCULOSKELETAL: Denies back pain or myalgia. Denies CVA tenderness NEUROLOGIC: Denies headache All systems reviewed & are unremarkable except as noted in HPI and below PMFSH Past Medical History Medical History (Updated 05/26/24 @ 12:47 by Deepthi Castellon NP) PCOS (polycystic ovarian syndrome) Urinary tract infection Anxiety Surgical History Surgical History (Updated 05/26/24 @ 12:47 by Deepthi Castellon NP) Previous section x3 Social History Social History (Updated 05/26/24 @ 12:47 by Deepthi Castellon NP) Living arrangements: with family Gender identity (if verbalized by the patient): Female Comments At time of signature, agree with nursing past medical, surgical, social and family history. There is no relevant family history pertinent to the presenting complaint Exam Narrative: GENERAL: Well-appearing, well-nourished, and in no acute distress. HEAD: Normocephalic, atraumatic. NECK: Supple.no lymphadenopathy CHEST: Clear to auscultation. No respiratory distress.SAO2 98% on room air HEART: Regular rate and rhythm. No murmur heard. Normal peripheral pulses. ABDOMEN: Soft, nontender, nondistended, normal active bowel sounds. No CVA tenderness, no McBurney point tenderness reports pelvic pressure and urinary urgency and frequency EXTREMITIES: Normal range of motion. No edema. SKIN: Warm, dry, no rash. NEURO: No focal deficits. Alert and oriented x3. Course Course Emergency Course: Patient is aware of diagnosis, understands and agrees to treatment plan.? Anticipatory guidance given.? Patient agrees to follow-up as directed and is aware of reasons to seek care at the emergency department. Portions of this record may have been created with voice recognition software Level of Care: Express Care Visit Vital Signs Vital signs: Vital Signs Temperature 37.1 C 05/24/24 18:44 Pulse Rate 81 05/24/24 18:44 Respiratory Rate 20 05/24/24 18:44 Blood Pressure 139/80 05/24/24 18:44 Pulse Oximetry 98 05/24/24 18:44 Oxygen Delivery Room Air 05/24/24 18:44 Temperature 37.1 C 05/24/24 18:44 Pulse Rate 81 05/24/24 18:44 Respiratory Rate 20 05/24/24 18:44 Blood Pressure 139/80 05/24/24 18:44 Pulse Oximetry 98 05/24/24 18:44 Oxygen Delivery Room Air 05/24/24 18:44 reviewed MDM - Female Genitourinary MDM Narrative Medical decision making narrative: Exam findings and UA show no acute concerns or changes; patient is non-toxic appearing and is in no distress.? Patient is appropriate for outpatient treatment and follow-up. Differential Diagnosis Differential diagnosis: Likely urinary tract infection, cystitis and other (pelvic pressure,urinary frequecy) Medical Records Attestation: I reviewed the patient's medical records. Lab Data Attestation: I reviewed the patient's lab results. Lab results narrative: Urine dip glucose negative, bilirubin negative, ketone negative, specific gravity 1.025 he, blood negative, pH 5.5 protein negative urobilinogen 0.2, nitrate negative leukocyte negative Labs: Lab Results 05/24/24 Range/Units 19:09 POC Urine Color Yellow POC Urine Clarity Clear POC Urine pH 5.5 POC Ur Specif Randolph 1.025 POC Urine Protein Negative (Negative) POC Ur Glucose (UA) Negative (Negative) POC Urine Ketones Negative (Negative) POC Urine Blood Negative (Negative) POC Urine Nitrite Negative (Negative) POC Urine Bilirubin Negative (Negative) POC Urine Urobilinogen 0.2 POC U Leukocyte Esteras Negative (Negative) reviewed Critical Care Time Critical Care Time Critical Care Time: No Discharge Plan Discharge Clinical Impression: Urinary tract infection symptoms Patient Disposition: Home Condition: Stable Instructions: Antibiotic Form, Urinary Tract Infection in Women (ED) Additional Instructions: Increase fluids especially cranberry juice and water Avoid caffeine and carbonated beverages Antibiotic as directed b.i.d. x3 days Tylenol/ibuprofen for pain or fever Follow-up with her primary care provider if further problems or concerns Recheck if you have fever over 101, nausea and vomiting. If your symptoms persist, change or worsen significantly before you can contact your personal physician then please, without delay, go to the emergency depar tment for further evaluation. Follow-up with PCP in 7-10 days or sooner if needed Follow up with PCP soon in regards to your blood pressure which is elevated above threshold for referral. Blood pressure above 120/80 may indicate pre- hypertension. 139/80 Patient Language: Sierra Leonean Prescriptions: New sulfamethoxazole-trimethoprim [Bactrim DS] 800-160 mg tablet 1 tablet PO Q12H Qty: 6 0RF No Action sertraline 100 mg tablet 100 mg PO DAILY metformin 500 mg tablet extended release 24 hr 500 mg PO DAILY Follow-up/Referrals: UNKNOWN,DOCTOR [Primary Care Provider] - Time of Disposition: 20:01 Quality [place] Coma Scale Eyes: Open Verbal: Oriented and Alert Motor: Follows Commands Raiza Coma Total Score: 15
== END 2024-05-24 20:07 | disposition home or self-care (01) ==
PROVIDERS: Emergency Provider Registered Nurse
DX: R35.0 Frequency of micturition (principal); E28.2 Polycystic ovarian syndrome; F41.9 Anxiety disorder, unspecified
CPT/HCPCS: 81003; 87086; 99213; G0463

== ENCOUNTER 2024-10-18 18:14 | Emergency (ER) | payer OTHER, SELFPAY ==
--- NOTE | ~2024-10-18 | XR_ITS ---
XR knee LT min 4V 10/18/2024 18:34 Indication: Left knee pain after fall Procedure: 4 views left knee Comparison: No prior studies for comparison. Findings: There is a nondisplaced patellar fracture. No other fracture is seen. No significant joint effusion. Impression: 1: Nondisplaced patellar fracture. Reviewed, dictated and finalized at location O. Impression: 1: Nondisplaced patellar fracture.
--- OUTSIDE RECORDS SUMMARY | 2024-10-18 18:16 | XMS_ITS | Clinical Summary ---
Author Organization [address] Address [address] [place] [address] Care Team Providers Care Biomedical Specialist Name Role Phone No, Physician Primary Care Provider [phone] Allergies Active Allergy Reactions Criticality Noted Date [...] Active Active Problems No known active problems Surgical History Surgery Date Site/Laterality Comments OTHER [...] on file Legal Sex Female 2:37 AM THREAD WINDER AUTOMATIC Gender Identity Not on file Sexual Orientation Not on file Obstetrics History Last Filed Vital Signs Vital Sign Reading Time Taken Comments Blood Pressure 122/80 03/06/2024 10:40 AM THREAD WINDER AUTOMATIC Pulse 84 03/06/2024 10:40 AM THREAD WINDER AUTOMATIC Temperature 36.5 C (97.7 F) 03/06/2024 10:40 AM THREAD WINDER AUTOMATIC Respiratory Rate 16 03/06/2024 10:40 AM THREAD WINDER AUTOMATIC Oxygen Saturation 99% 03/06/2024 10:40 AM THREAD WINDER AUTOMATIC Inhaled Oxygen Concentration - - Weight 100.7 kg (222 lb) 03/06/2024 10:40 AM THREAD WINDER AUTOMATIC Height 165.1 cm (5' 5) 03/06/2024 10:40 AM THREAD WINDER AUTOMATIC Body Mass Index 36.94 03/06/2024 10:40 AM THREAD WINDER AUTOMATIC Plan of Treatment Health Maintenance Due Date Last Done Comments Cervical Cancer Screening 1992 Depression Screening 1992 Hepatitis C Screening 1992 Varicella Vaccines (1 of 2 - 13+ 2-dose series) 2005 Hepatitis B Screening 2010 Regular Well Visit/Exam 18-64 2010 HPV Vaccines (1 - 3-dose SCDM series) 05/22/2019 Influenza Vaccine (#1) 2024 4, 12/11/2013, 03/02/2013, Additional history exists DTaP/Tdap/Td Vaccine (4 - Td or Tdap) 03/29/2031 03/29/2021, 07/18/2014, 05/04/2011 Pneumococcal vaccine <65 Aged Out No longer eligible based on patient's age to complete this topic Insurance [id number] Care Teams Biomedical Specialist Relationship Specialty Start Date End Date No, Physician PCP - General 04/25/20
[2024-10-18 18:22] VITALS: BP 133/86; PULSE 79; RESP 18; TEMP 36.5; O2SAT 100
--- NOTE | 2024-10-18 19:31 | ED.GENADULT ---
HPI - General Adult General Chief complaint: Extremity Injury, Lower Stated complaint: Left Knee Injury Source: patient Mode of arrival: ambulatory Limitations: no limitations History of Present Illness HPI narrative: Patient presents for evaluation of left knee pain. Symptom onset today. She slipped on a tile floor, landing on her left knee. She did not hit her head. No loss of consciousness. She now reports 7/10 pain in the affected joint. Extension of the knee makes her pain worse. No radicular component. She has not taken any medication to assist with her symptoms. Related Data Home Medications ?Medication ?Instructions ?Recorded ?Confirmed ?Last Taken ?Type metformin 500 mg tablet,extended 500 mg PO DAILY 03/30/23 11/16/23 Unknown History release 24 hr sertraline 100 mg tablet 100 mg PO DAILY 03/30/23 11/16/23 Unknown History Allergies Allergy/AdvReac Type Severity Reaction Status Date / Time cefaclor (From Pending Sale To [facility]) Allergy Unknown Verified 10/18/24 18:22 Review of Systems Review of Systems: CONSTITUTIONAL: Denies fever, chills, or sweats. EYES: Denies visual changes, redness, or discharge. ENT: Denies rhinorrhea, congestion, sore throat, or otalgia. CARDIOVASCULAR: Denies chest pain, palpitations, or edema. RESPIRATORY: Denies cough or dyspnea. GASTROINTESTINAL: Denies abdominal pain, nausea, vomiting, or diarrhea. GENITOURINARY: Denies dysuria or hematuria. SKIN: Denies rash or itching. MUSCULOSKELETAL: Reports left knee NEUROLOGIC: Denies headache, numbness, dizziness, or weakness. PSYCHIATRIC: Denies anxiety or depression. [facility] Past Medical History Medical History PCOS (polycystic ovarian syndrome) Urinary tract infection Anxiety Surgical History Surgical History Previous section x3 Family History Family History Mother Family history non-contributory Social History Social History Living arrangements: with family Gender identity (if verbalized by the patient): Female Sexual Orientation (if Verbalized by the Patient): Straight or Heterosexual Spiritual care concerns: No Exam Narrative: GENERAL: Well-appearing, well-nourished, and in no acute distress. HEAD: Normocephalic, atraumatic. EYES: PERRLA and EOMI. ENT: Nares clear, no rhinorrhea or epistaxis. Mucous membranes moist. Oropharynx without tonsillar hypertrophy exudate or other lesions. Bilateral TMs pearly pickett nonbulging NECK: Supple. No adenopathy or masses. No carotid bruits or JVD CHEST: Clear to auscultation. No respiratory distress. No wheezes rales or rhonchi HEART: Regular rate and rhythm. No murmur heard. Normal peripheral pulses. ABDOMEN: Soft, nontender, nondistended, normal active bowel sounds. EXTREMITIES: There is tender is in the anterior aspect of the left knee. Decreased active extension of the left knee secondary to pain. SKIN: Warm, dry, no rash. NEURO: No focal deficits. Alert and oriented x3. PSYCH: Normal mood and affect. Course Course Emergency Course: This is a 34-year-old female who presented for evaluation of left knee pain. X-ray showed patella fracture. Placed in knee immobilizer and provided with crutches. Advised on nonweightbearing status. not checked as she is actively menstruating. Will DC with hydrocodone. Follow-up with orthopedics. Go to the ER for intractable pain. Patient in agreement with plan of care. Level of Care: Express Care Visit Vital Signs Vital signs: Vital Signs Temperature 36.5 C 10/18/24 18:22 Pulse Rate 79 10/18/24 18:22 Respiratory Rate 18 10/18/24 18:22 Blood Pressure 133/86 10/18/24 18:22 Pulse Oximetry 100 10/18/24 18:22 Oxygen Delivery Room Air 10/18/24 18:22 Temperature 36.5 C 10/18/24 18:22 Pulse Rate 79 10/18/24 18:22 Respiratory Rate 18 10/18/24 18:22 Blood Pressure 133/86 10/18/24 18:22 Pulse Oximetry 100 10/18/24 18:22 Oxygen Delivery Room Air 10/18/24 18:22 Medical Decision Making Vital Signs Vital Signs: Vital Signs Temperature 36.5 C 10/18/24 18:22 Pulse Rate 79 10/18/24 18:22 Respiratory Rate 18 10/18/24 18:22 Blood Pressure 133/86 10/18/24 18:22 Pulse Oximetry 100 10/18/24 18:22 Oxygen Delivery Room Air 10/18/24 18:22 Temperature 36.5 C 10/18/24 18:22 Pulse Rate 79 10/18/24 18:22 Respiratory Rate 18 10/18/24 18:22 Blood Pressure 133/86 10/18/24 18:22 Pulse Oximetry 100 10/18/24 18:22 Oxygen Delivery Room Air 10/18/24 18:22 Discharge Plan Discharge Clinical Impression: Closed fracture of left patella Patient Disposition: Home Condition: Stable Instructions: Antibiotic Form, Patellar Fracture (ED) Additional Instructions: PLEASE USE YOUR CRUTCHES TO AMBULATE DO NOT PLACE WEIGHT ON YOUR LEFT LEG APPLY ICE FOR PAIN AND SWELLING USE YOUR KNEE IMMOBILIZER KEEP LEFT LEG ELEVATED WHEN NOT MOBILIZING Patient Language: Slovenian Prescriptions: New hydrocodone-acetaminophen 5-325 mg tablet 1 - 2 tablet PO Q6H PRN (Reason: pain) Qty: 20 0RF No Action sertraline 100 mg tablet 100 mg PO DAILY metformin 500 mg tablet extended release 24 hr 500 mg PO DAILY Follow-up/Referrals: Scooter Anthony MD [Physician, Family Practice] August Franco MD [Physician, Orthopedics] Time of Disposition: 19:30
== END 2024-10-18 19:43 | disposition home or self-care (01) ==
PROVIDERS: Emergency Provider Nurse Practitioner
DX: S82.002A Unspecified fracture of left patella, initial encounter for closed fracture (principal); W01.0XXA Fall on same level from slipping, tripping and stumbling without subsequent striking against object, initial encounter; E28.2 Polycystic ovarian syndrome; F41.9 Anxiety disorder, unspecified
CPT/HCPCS: 73564; 99214; G0463; L1830

== ENCOUNTER 2024-11-28 12:00 | Emergency (ER) | payer OTHER, SELFPAY ==
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
[2024-11-28 12:10] VITALS: BP 151/81; PULSE 82; RESP 20; TEMP 36.7; O2SAT 100
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
== END 2024-11-28 13:05 | disposition home or self-care (01) ==
DX: S82.002A Unspecified fracture of left patella, initial encounter for closed fracture (principal); V87.7XXA Person injured in collision between other specified motor vehicles (traffic), initial encounter; F41.9 Anxiety disorder, unspecified
CPT/HCPCS: 73564; 99214; G0463; L1830